=== PATIENT | male | born 1940 | race Caucasian/White ===

== ENCOUNTER → 2017-05-27 11:50 | Outpatient (CLI) | payer MEDICARE, SELFPAY ==
[2017-05-27 12:04] LABS: Hematocrit 36.2 % (40-54); Hemoglobin 11.4 g/dl (13.0-16.5); Mean Corp Hgb Conc 31.5 g/gl (32-36); Mean Corpuscular Hgb 30.9 pg (27.0-32.0); Mean Corpuscular Volume 98.1 fL (80-94); Mean Platelet Vol. 11.1 fl (6.2-12.0); Platelet Count 183 K/mm3 (150-450); RBC Distribution Width CV 12.8 % (11.6-14.6); RBC Distribution Width SD 44.2 fl (35.1-43.9); Red Blood Count 3.69 M/mm3 (4.6-6.2); White Blood Count 6.9 K/mm3 (4.4-11.0)
[2017-05-27 12:09] LABS: Scan Indicated on CBC? Y/N NO
[2017-05-27 12:30] LABS: ALB/GLOB Ratio 1.2 RATIO (0.9-2.4); AST(SGOT) 17 U/L (15-37); Alanine Aminotransfer ALT/SGPT 16 U/L (16-61); Albumin, Serum 3.7 g/dL (3.2-5.0); Alkaline Phosphatase 83 U/L (45-117); Anion Gap 5 (5-15); BUN 25 mg/dL (7-18); BUN/Creat Ratio 20.2 RATIO (10-20); Calcium,Total 8.8 mg/dL (8.5-10.1); Chloride 104 mmol/L (98-107); Cholesterol 105 mg/dL (200); Creatinine, Serum 1.24 mg/dL (0.70-1.30); EST Glomerular Filtration Rate 60 mL/min (>60); Est Glom Filt Rate - Afr Amer 73 mL/min (>60); Globulin 3.1 g/dL (2.2-4.2); Glucose 95 mg/dL (74-106); High Density Lipoprotein 43 mg/dL; Potassium 4.9 mmol/L (3.5-5.1); Protein, Total 6.8 g/dL (6.4-8.2); Sodium Level 138 mmol/L (136-145); Triglycerides 68 mg/dL; Very Low Density Lipoprotein 14 mg/dL (5-40)
== END ==
PROVIDERS: Family Provider Internal Medicine; PCP Internal Medicine; Visit Provider Internal Medicine
DX: E78.5 Hyperlipidemia, unspecified (principal); Z79.899 Other long term (current) drug therapy
CPT/HCPCS: 80053; 80061; 85027

== ENCOUNTER → 2018-05-28 06:18 | Outpatient (CLI) | payer MEDICARE, SELFPAY ==
[2018-05-26 08:37] VITALS: BMI 23.4
[2018-05-28 07:36] LABS: AST(SGOT) 16 U/L (15-37); Alanine Aminotransfer ALT/SGPT 13 U/L (16-61); Albumin, Serum 3.7 g/dL (3.2-5.0); Alkaline Phosphatase 85 U/L (45-117); Bilirubin, Direct 0.11 mg/dL (0.00-0.30); Cholesterol 111 mg/dL (200); Globulin 3.1 g/dL (2.2-4.2); High Density Lipoprotein 38 mg/dL; Protein, Total 6.8 g/dL (6.4-8.2); Triglycerides 59 mg/dL; Very Low Density Lipoprotein 12 mg/dL (5-40)
== END ==
PROVIDERS: Family Provider Internal Medicine; PCP Internal Medicine; Referring Provider Internal Medicine Cardiovascular Disease; Visit Provider Internal Medicine Cardiovascular Disease
DX: E78.00 Pure hypercholesterolemia, unspecified (principal)
CPT/HCPCS: 36415; 80061; 80076

== ENCOUNTER → 2018-06-24 06:41 | Outpatient (CLI) | payer MEDICARE, SELFPAY ==
[2018-05-26 08:37] VITALS: BMI 23.4
--- NOTE | 2018-06-24 06:47 | ECHOD_ITS ---
Reason For Study: CAD/ASHD Procedure This was a 2D Doppler, Color Flow transthoracic echocardiogram. Exam performed in department. Left Ventricle Normal LV size. Left ventricular systolic function is normal. The estimated ejection fraction is 60 %. Stage 3 diastolic dysfunction. No regional wall motion abnormalities noted. Right Ventricle Normal RV size. Normal systolic function. Atria Normal left atrium. Normal right atrium. Mitral Valve Normal mitral valve. Mild (1+) eccentric mitral valve insufficiency. Tricuspid Valve Normal tricuspid valve. Mild tricuspid valve insufficiency. Pulmonary artery systolic pressure is 34 mmHg. Aortic Valve Trisinus/trileaflet aortic valve. Mild (1+) eccentric aortic valve insufficiency. Pulmonic Valve Normal pulmonic valve. Great Vessels Normal aortic root. The pulmonary artery is normal size. Normal inferior vena cava. Pericardium/Pleural No pericardial effusion. MMode/2D Measurements & Calculations LVIDd: 4.3 cm IVSd: 1.2 cm Ao root diam: 4.0 cm LVIDs: 2.8 cm LVPWd: 0.89 cm LA dimension: 3.5 cm RVDd: 3.5 cm FS: 35.5 % LAV(MOD-bp): 38.1 ml LA A4 area: 12.4 cm2 RA A4 area: 13.5 cm2 LAV(MOD-bp) Indexed: 20.3 ml/m2 LAV(MOD-sp2): 46.7 ml LAV(MOD-sp4): 29.7 ml Time Measurements MV dec time: 0.22 sec Doppler Measurements & Calculations MV E max chong: 100.4 cm/sec Lat Peak E' Chong: 9.6 cm/sec Med Peak E' Chong: 10.3 cm/sec MV A max chong: 40.4 cm/sec E/E' lat: 10.4 E/E' med: 9.7 MV E/A: 2.5 MV V2 max: 126.8 cm/sec MV P1/2t max chong: 127.7 cm/sec Ao V2 max: 97.7 cm/sec MV max P.4 mmHg MV P1/2t: 60.5 msec Ao max P.8 mmHg MV V2 mean: 56.6 cm/sec MV dec slope: 618.4 cm/sec2 MV mean P.6 mmHg MVA(P1/2t): 3.6 cm2 MV V2 VTI: 35.4 cm AI max chong: 276.1 cm/sec LV V1 max: 82.3 cm/sec PA V2 max: 111.3 cm/sec AI max P.5 mmHg LV V1 max P.7 mmHg AI dec slope: 134.4 cm/sec2 AI P1/2t: 601.6 msec PI dec slope: 252.0 cm/sec2 TR max chong: 277.6 cm/sec TR max P.8 mmHg Interpretation Summary Normal LV size. Left ventricular systolic function is normal. The estimated ejection fraction is 60 %. Stage 3 diastolic dysfunction. Pulmonary artery systolic pressure is 34 mmHg. Ordering Physician: Tod Foss Referring Physician: Tod Foss Performed By: Olvin Pugh RCS
--- NOTE | 2018-06-24 13:19 | STRESSREP ---
Stress Test Report Exercise myocardial perfusion stress test. 78-year-old man with a history of chest pain. Stress protocol: Resting EKG demonstrates sinus bradycardia with a rate of 55 bpm resting blood pressure 120/74 mmHg. The patient exercised according to the regular Johan protocol for total duration of 12 minutes the maximum heart rate attained was 130 bpm is 90% maximum predicted heart rate the maximum workload was 13.4 metabolic equivalents. At rest there were no ST or T wave changes noted suggest ischemia peak exercise upsloping ST changes only were noted with normally the criteria for ischemia. The resting blood pressure 128/74 with a peak blood pressure 160/70 mmHg. No clinical angina was noted the test was terminated due to leg fatigue. Myocardial perfusion protocol. 11.5 mCi of technetium 99m sestamibi was injected at rest. Patient exercised according to regular Johan protocol for total duration of 12 minutes. At peak exercise 36.0 mCi of technetium 99m sestamibi was injected stress images were obtained stress and rest images were reconstructed and compared in the short axis vertical long horizontal long axis. Gated images were also obtained per Perfusion SPECT analysis: Review of the stress images demonstrate normal uptake of tracer noted in all areas of the myocardium. There is resting images similarly demonstrate normal uptake of tracer noted in all the rest of the myocardium. No areas of reversibility are noted suggest ischemia no previous infarct is noted. Gated SPECT analysis: The gated ejection fraction is noted to be 74%. Conclusion: Normal exercise myocardial perfusion stress test at a high workload. No ischemia noted. Preserved ejection fraction.
== END ==
PROVIDERS: Family Provider Internal Medicine; PCP Internal Medicine; Referring Provider Internal Medicine Cardiovascular Disease; Visit Provider Internal Medicine Cardiovascular Disease
DX: I25.10 Atherosclerotic heart disease of native coronary artery without angina pectoris (principal); Z95.1 Presence of aortocoronary bypass graft
CPT/HCPCS: 78452; 93017; 93306; A9500; A4216

== ENCOUNTER → 2020-01-13 15:50 | Outpatient (CLI) | payer MEDICARE, SELFPAY ==
[2020-01-13 15:30] VITALS: BMI 23.4
[2020-01-13 17:52] LABS: AST(SGOT) 18 U/L (15-37); Alanine Aminotransfer ALT/SGPT 14 U/L (16-61); Albumin, Serum 3.8 g/dL (3.2-5.0); Alkaline Phosphatase 85 U/L (45-117); Bilirubin, Direct 0.08 mg/dL (0.00-0.30); Cholesterol 119 mg/dL (200); Globulin 3.2 g/dL (2.2-4.2); High Density Lipoprotein 42 mg/dL; Triglycerides 100 mg/dL; Very Low Density Lipoprotein 20 mg/dL (5-40)
== END ==
PROVIDERS: PCP Internal Medicine; Referring Provider Internal Medicine Cardiovascular Disease; Visit Provider Internal Medicine Cardiovascular Disease
DX: E78.5 Hyperlipidemia, unspecified (principal); I25.709 Atherosclerosis of coronary artery bypass graft(s), unspecified, with unspecified angina pectoris
CPT/HCPCS: 36415; 80061; 80076

== ENCOUNTER 2020-03-03 11:28 | Observation (INO) | payer MEDICARE, SELFPAY ==
[2020-01-13 15:30] VITALS: BMI 23.4
[2020-03-03] VITALS (7 sets, daily range): BP systolic 122–144; BP diastolic 55–77; PULSE 54–57; RESP 14–18; TEMP 36.4–37.1; O2SAT 98–100; BMI 23.1
--- NOTE | 2020-03-03 11:59 | EKG12_ITS ---
Test Reason : Blood Pressure : / mmHG Vent. Rate : 054 BPM Atrial Rate : 054 BPM P-R Int : 196 ms QRS Dur : 080 ms QT Int : 422 ms P-R-T Axes : 000 033 046 degrees QTc Int : 400 ms Sinus bradycardia Otherwise normal ECG Confirmed by KAYKAY BENITEZ, [facility] ([id number]), editor farm journal WOLFGANG VERNON ([id number]) on 03/07/2020 8:36:53 AM Referred By: MARGAUX Confirmed By:[facility]I MCCRACKEN MD
--- NOTE | 2020-03-03 12:12 | ED.VIS.GEN ---
History of Present Illness Chief Complaint: Abn Labs Informant: Patient Narrative: Patient states that he received a phone call today that his potassium was elevated. Initially he was told to drink more fluids and stop his lisinopril and have it rechecked. Later he was advised to come to the emergency room. He does not know what level his potassium was at. He does not know what his creatinine status is. He denies any palpitations. He states he played pickle ball this morning but stated that his upper back muscles did not seem as strong as they have been. No muscle spasms. He states he has been urinating normally. He denies taking any potassium supplementation. No vomiting or diarrhea. Blood work drawn on March 02 was faxed to me appears to have a creatinine of 1.49 and a potassium of 6.5. Past Medical History - Allergies and Home Meds Allergies/Adverse Reactions: Allergies niacin [From Niaspan Extended-Release] Adverse Reaction (Verified 03/03/20 12:11) Other Primary Care Physician: Lyubov Diaz MD [Primary Care Provider] - Surgical History: coronary bypass surgery Smoking Status: Never smoker - Family History Paternal Family History: Family History (Last Reviewed 01/13/20 @ 15:[address] Tod Foss MD) Father CAD (coronary artery disease) Diabetes Hypertension Myocardial infarction Mother Colon cancer Brother CAD (coronary artery disease) Diabetes CABG a 58 CABG age 58 Family History: Reports: Heart Disease Sibling Family History: Family History (Last Reviewed 01/13/20 @ 15:[address] Tod Foss MD) Father CAD (coronary artery disease) Diabetes Hypertension Myocardial infarction Mother Colon cancer Brother CAD (coronary artery disease) Diabetes CABG a 58 CABG age 58 Family History: Reports: Heart Disease Review of Systems General: Denies: Chills, Fever, Sweats Eyes: Denies: Visual changes - bilaterally, Diplopia ENT: Denies: Rhinorrhea, Sore throat Cardiovascular: Denies: Chest pain, Palpitations Respiratory: Denies: Dyspnea, Cough, Dyspnea on exertion Gastrointestinal: Denies: Abdominal pain, Nausea, Vomiting, Diarrhea, Melena, Hematochezia Genitourinary: Denies: Dysuria, Hematuria, Frequency Musculoskeletal: Denies: Back pain, Extremity Pain Skin: Denies: Rash, Wounds Neurological: Denies: Headache, Weakness, Numbness Physical Exam Vital Signs/Narrative: Vital Signs Temp Pulse Resp BP Pulse Ox 03/03/20 11:29 97.9 F 54 L 18 132/73 H 99 Inital Vital Signs reviewed: Yes General: Well nourished, Well developed, No Acute Distress Head: Normocephalic, Atraumatic Eyes: Perrl, EOMI ENT: Moist mucous membranes, No rhinorrhea Neck: Supple, Nontender Cardiovascular: Regular rate, Regular rhythm, No murmurs Respiratory: No distress, CTA bilaterally, Chest nontender Abdomen: Soft, Nontender, Nondistended, Normal bowel sounds Back: Nontender, Normal Inspection Extremities: Nontender, No edema Skin: Normal color, No rash Neurological: Alert, Oriented x3, Cranial nerves II-XII grossly intact, Normal Strength, Normal Sensation Psychological: Normal affect, Normal Mood Diagnostic/Tx/Re-eval Laboratory Last Values WBC 6.6 K/mm3 (4.4-11.0) 03/03/20 12:10 RBC 3.37 M/mm3 (4.6-6.2) L 03/03/20 12:10 Hgb 10.5 g/dL (13.0-16.5) L 03/03/20 12:10 Hct 33.6 % (40-54) L 03/03/20 12:10 MCV 99.7 fL (80-94) H 03/03/20 12:10 MCH 31.2 pg (27.0-32.0) 03/03/20 12:10 MCHC 31.3 g/dL (32-36) L 03/03/20 12:10 RDW Std Deviation 47.6 fl (35.1-43.9) H 03/03/20 12:10 RDW Coeff of [place] 12.9 % (11.6-14.6) 03/03/20 12:10 Plt Count 177 K/mm3 (150-450) 03/03/20 12:10 MPV 10.6 fl (6.2-12.0) 03/03/20 12:10 Immature Gran % (Auto) 0.300 % (0.0-0.9) 03/03/20 12:10 Neut % (Auto) 70.6 % (47-70) H 03/03/20 12:10 Lymph % (Auto) 14.3 % (19-41) L 03/03/20 12:10 [place] % (Auto) 9.6 % (0-10) 03/03/20 12:10 Eos % (Auto) 4.7 % (0-5) 03/03/20 12:10 Baso % (Auto) 0.5 % (0-1) 03/03/20 12:10 Absolute Neuts (auto) 4.6 X10^3/uL (2.0-7.7) 03/03/20 12:10 Absolute Lymphs (auto) 0.94 X10^3/uL (0.83-4.51) 03/03/20 12:10 Nucleated RBC % 0 % (0-5) 03/03/20 12:10 Sodium 135 mmol/L (136-145) L 03/03/20 12:10 Potassium 6.6 mmol/L (3.5-5.1) H* 03/03/20 12:10 Chloride 106 mmol/L (98-107) 03/03/20 12:10 Carbon Dioxide 28.0 mmol/L (21.0-32.0) 03/03/20 12:10 Anion Gap 1 (5-15) L 03/03/20 12:10 BUN 39 mg/dL (7-18) H 03/03/20 12:10 Creatinine 1.79 mg/dL (0.70-1.30) H 03/03/20 12:10 Estim Creat Clear Calc 32.37 ml/min 03/03/20 12:10 Est GFR (MDRD) Af Amer 47 mL/min (>60) L 03/03/20 12:10 Est GFR (MDRD) Non-Af 39 mL/min (>60) L 03/03/20 12:10 BUN/Creatinine Ratio 21.8 RATIO (10-20) H 03/03/20 12:10 Glucose 95 mg/dL (74-106) 03/03/20 12:10 Calcium 8.8 mg/dL (8.5-10.1) 03/03/20 12:10 Magnesium 2.7 mg/dL (1.6-2.6) H 03/03/20 12:10 - EKG Initial EKG Interpretation: Sinus Rhythm - EKG demonstrates a sinus bradycardia at a rate of 54. There is no change in T waves or QT intervals compared to EKG dated May 2018. - Medical Decision Making The patient was placed on the monitor. Patient received a liter of IV fluids and 30 mg of Kayexalate. Plan will be admission into the hospital. ED Disposition - Plan for ED Patient: Disposition: [facility] Diagnosis: Hyperkalemia, Acute renal insufficiency Referrals: Lyubov Diaz MD [Primary Care Provider] -
[2020-03-03 12:25] LABS: Absolute Lymphocyte Count 0.94 X10^3/uL (0.83-4.51); Absolute Neutrophil Count 4.6 X10^3/uL (2.0-7.7); Basophil# 0.03 X10^3/uL; Basophil% 0.5 % (0-1); Eosinophil# 0.31 X10^3/uL; Eosinophils% 4.7 % (0-5); Hematocrit 33.6 % (40-54); Hemoglobin 10.5 g/dL (13.0-16.5); Lymphocyte # 0.94 X10^3/ul (4.0); Lymphocyte % 14.3 % (19-41); Mean Corp Hgb Conc 31.3 g/dL (32-36); Mean Corpuscular Hgb 31.2 pg (27.0-32.0); Mean Corpuscular Volume 99.7 fL (80-94); Mean Platelet Vol. 10.6 fl (6.2-12.0); Monocyte# 0.63 X10^3/uL; Monocyte% 9.6 % (0-10); NRBC Flagged by Analyzer 0 % (0-5); Neutrophil # 4.63 X10^3/uL (2.7-7.7); Neutrophil % 70.6 % (47-70); Platelet Count 177 K/mm3 (150-450); RBC Distribution Width CV 12.9 % (11.6-14.6); RBC Distribution Width SD 47.6 fl (35.1-43.9); Red Blood Count 3.37 M/mm3 (4.6-6.2); White Blood Count 6.6 K/mm3 (4.4-11.0)
[2020-03-03 12:34] LABS: Anion Gap 1 (5-15); BUN 39 mg/dL (7-18); BUN/Creat Ratio 21.8 RATIO (10-20); Calcium,Total 8.8 mg/dL (8.5-10.1); Chloride 106 mmol/L (98-107); Creatinine, Serum 1.79 mg/dL (0.70-1.30); EST Glomerular Filtration Rate 39 mL/min (>60); Est Glom Filt Rate - Afr Amer 47 mL/min (>60); Estimated Creatinine Clearance 32.37 ml/min; Glucose 95 mg/dL (74-106); Potassium 6.6 mmol/L (3.5-5.1); Sodium Level 135 mmol/L (136-145)
[2020-03-03 13:09] LABS: Magnesium 2.7 mg/dL (1.6-2.6)
[2020-03-03] MEDS: 0.9% Normal Saline 1,000 ML 999 ML IV (13:23)
[2020-03-03] MEDS: Sodium Polystyrene Sulfonate 15 GM/60 ML UDC 30 GM PO (13:24)
--- NOTE | 2020-03-03 13:28 | HP.PCM_ITS ---
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 (4) Atherosclerosis of coronary artery of [place] heart without angina pectoris Status: Chronic (5) History of coronary artery stent placement Status: Resolved Comment: [id number] Main w/ 4.5 x 16 mm Liberte Stent 05/26/2007 (6) H/O coronary artery bypass surgery Status: Resolved Comment: CABG x 3 ANGEL-LAD, SVG-OM1 and SVG-RCA w/ Maze procedure 12/02/2002 (7) Premature ventricular contractions Status: Chronic (8) Paroxysmal atrial fibrillation Status: Chronic (9) Hyperlipidemia Status: Chronic Qualifiers: Hyperlipidemia type: pure hypercholesterolemia Qualified Code(s): E78.00 - Pure hypercholesterolemia, unspecified; E78.00 - Pure hypercholesterolemia, unspecified; E78.00 - Pure hypercholesterolemia, unspecified; E78.0 - Pure hypercholesterolemia (10) Left ventricular diastolic dysfunction Status: Chronic History of Present Illness Date of Admission: 03/03/20 Chief Complaint: abnormal labs. The patient is a 80 year old M who has been feeling well other than today noted some weakness in the shoulders. A week ago, patient had a routine blood work that showed a potassium that was elevated. It was rechecked again today and was elevated. Directed to the emergency room. Patient was advised to stop his lisinopril today by his primary care provider. In the emergency room, patient's potassium was 6.6. EKG was normal. Patient was ordered Kayexalate and the hospital service was contacted for admission. Patient denies any history of any electrolyte abnormality that he is aware of. [] Past Medical History Past Medical History (Chronic Problems): Chronic Problems (Last Reviewed 03/03/20 @ 13:[address] Darío Kamara DO) Atherosclerosis of coronary artery bypass graft of [place] heart with angina pectoris (Chronic) Atherosclerosis of coronary artery of [place] heart without angina pectoris (Chronic) Premature ventricular contractions (Chronic) Paroxysmal atrial fibrillation (Chronic) Hyperlipidemia (Chronic) Left ventricular diastolic dysfunction (Chronic) Medical History: Medical History (Last Reviewed 03/03/20 @ 13:[address] Darío Kamara DO) Atherosclerosis of coronary artery bypass graft of [place] heart with angina pectoris (Chronic) I25.709 Atherosclerosis of coronary artery of [place] heart without angina pectoris (Chronic) I25.10 Premature ventricular contractions (Chronic) I49.3 Paroxysmal atrial fibrillation (Chronic) I48.0 Hyperlipidemia (Chronic) E78.5 Left ventricular diastolic dysfunction (Chronic) I51.9 Dizziness (Inactive) R42 Allergies lisinopril Adverse Reaction (Verified 03/03/20 13:26) NEEDS FOLLOW-UP suspected cause of hyperkalemia niacin [From Niaspan Extended-Release] Adverse Reaction (Verified 03/03/20 12:11) Other Home Medications: Ambulatory Orders Medication Instructions Recorded simvastatin 80 mg tablet 80 mg PO QDAY #90 tab 04/02/19 metoprolol tartrate 100 mg tablet 100 mg PO BID #180 tab 04/06/19 aspirin 81 mg tablet,delayed 81 mg PO DAILY #90 tab 04/15/19 release clopidogrel 75 mg tablet 75 mg PO QDAY #90 tab 07/20/19 lisinopril 5 mg tablet 5 mg PO DAILY #90 tab 07/20/19 amlodipine 5 mg tablet 5 mg PO DAILY #90 tab 09/22/19 Surgical History: Surgical History (Last Reviewed 03/03/20 @ 13:[address] Darío Kamara DO) History of coronary artery stent placement (Resolved) Onset Date: 05/26/07 Z95.5 [id number] Main w/ 4.5 x 16 mm Liberte Stent 05/26/2007 H/O coronary artery bypass surgery (Resolved) Onset Date: 12/02/02 Z95.1 CABG x 3 ANGEL-LAD, SVG-OM1 and SVG-RCA w/ Maze procedure 12/02/2002 History of maze procedure Z98.890 S/P CABG x 3 Z95.1 Surgical History: coronary bypass surgery Smoking Status: Never smoker - *Family History Paternal Family History: Family History (Last Reviewed 03/03/20 @ 13:[address] Darío Kamara DO) Father CAD (coronary artery disease) Diabetes Hypertension Myocardial infarction Mother Colon cancer Brother CAD (coronary artery disease) Diabetes CABG a 58 CABG age 58 History Items: Heart Disease Sibling Family History: Family History (Last Reviewed 03/03/20 @ 13:[address] Darío Kamara DO) Father CAD (coronary artery disease) Diabetes Hypertension Myocardial infarction Mother Colon cancer Brother CAD (coronary artery disease) Diabetes CABG a 58 CABG age 58 History Items: Heart Disease Review of Systems Constitutional: Denies: Anorexia, Chills, Fever, Night Sweats Eyes: Denies: Blurred vision, Double vision HEENT: Denies: Head Aches, Sinus Congestion, Sinus Drainage Cardiovascular: Denies: Chest Pain, Palpitations Respiratory: Denies: Cough, Shortness of breath at rest, Sputum production Gastrointestinal: Denies: Abdominal Pain, Nausea, Vomiting Genitourinary: Denies: Dysuria Hematologic/ Lymphatic: Denies: Easy Bruising, Easy Bleeding Comment: All review of systems were negative except as mentioned above in the history of present illness and the other review of systems. VTE Information - Inpt Only VTE Present on Admission: No VTE Mechan Device Prophylaxis: None VTE Pharm Prophylaxis ordered?: No Reason prophylaxis not ordered:: Treatment Not Indicated Patient Problems: Active and Suspected Problems (Last Reviewed 03/03/20 @ 13:[address] Darío Kamara, DO) Hyperkalemia (Acute) Acute renal insufficiency (Acute) - Physical Exam Vitals/I&O's: Vital Signs Temp Pulse Resp BP Pulse Ox 36.4 C L 57 L 16 122/62 H 100 03/03/20 13:25 03/03/20 13:25 03/03/20 13:25 03/03/20 13:25 03/03/20 13:25 Oxygen Delivery Method Room Air Weight: 68.946 kg Body Mass Index (BMI) 23.1 General: Alert, Cooperative, No apparent distress HEENT: Atraumatic, Normocephalic Oral: Moist Mucosa, No Gingival or Mucosal Lesions/ Ulcerations Neck: No Nodes, Thyroid Normal Size and Texture Lungs: Clear to auscultation, Normal air movement, No rhonchi, No wheeze Cardiovascular: Regular rate, Regular Rhythm, Normal S1, Normal S2, No murmurs Abdomen: Bowel Sounds Present, Soft, Non Tender, Non-Distended, No Hepato- splenomegaly Extremities: No edema, No Calf Tenderness Psych/Mental Status: Normal Affect, Appropriate Laboratory Results 03/03/20 12:10: WBC 6.6, RBC 3.37 L, Hgb 10.5 L, Hct 33.6 L, MCV 99.7 H, MCH 31.2, MCHC 31.3 L, RDW Std Deviation 47.6 H, RDW Coeff of [place] 12.9, Plt Count 1 77, MPV 10.6, Immature Gran % (Auto) 0.300, Neut % (Auto) 70.6 H, Lymph % (Auto) 14.3 L, [place] % (Auto) 9.6, Eos % (Auto) 4.7, Baso % (Auto) 0.5, Absolute Neuts (auto) 4.6, Absolute Lymphs (auto) 0.94, Nucleated RBC % 0 03/03/20 12:10: Sodium 135 L, Potassium 6.6 H*, Chloride 106, Carbon Dioxide 28.0, Anion Gap 1 L, BUN 39 H, Creatinine 1.79 H, Estim Creat Clear Calc 32.37, Est GFR (MDRD) Af Amer 47 L, Est GFR (MDRD) Non-Af 39 L, BUN/Creatinine Ratio 21.8 H, Glucose 95, Calcium 8.8 03/03/20 12:10: Magnesium 2.7 H Current Medications Sodium Chloride () 1,000 mls @ 999 mls/hr IV .Q1H1M ONE Stop: 03/03/20 13:38 Last Admin: 03/03/20 13:23 Dose: 999 mls/hr Documented by: Assessment/Plan All Active Problems (Last Reviewed 03/03/20 @ 13:[address] Darío Kamara, DO) Hyperkalemia (Acute) Acute renal insufficiency (Acute) History of coronary artery stent placement (Resolved 05/26/07) H/O coronary artery bypass surgery (Resolved 12/02/02) 1. Hyperkalemia: Asymptomatic other than just some subjective weakness. Unclear about this at all related with hyperkalemia. Likely related with lisinopril which will be held and added to the allergy list here. Not a true allergy but adverse reaction. Patient receiving Kayexalate in the emergency [facility] m. We will recheck his potassium this afternoon and also give him some fluids. If it is improved possibly patient could go home today or tomorrow. 2. Hypertension: Continue with amlodipine, hold lisinopril as mentioned above. 3. Coronary artery disease: Stable 4. VTE prophylaxis low risk as he is observation status. OBSV E&M: [id number] Initial observation care L2
[2020-03-03] MEDS: 0.9% Normal Saline 1,000 ML 250 ML IV (15:55)
[2020-03-03 17:57] LABS: Anion Gap 3 (5-15); BUN 35 mg/dL (7-18); BUN/Creat Ratio 22.6 RATIO (10-20); Calcium,Total 8.2 mg/dL (8.5-10.1); Chloride 107 mmol/L (98-107); Creatinine, Serum 1.55 mg/dL (0.70-1.30); EST Glomerular Filtration Rate 46 mL/min (>60); Est Glom Filt Rate - Afr Amer 56 mL/min (>60); Estimated Creatinine Clearance 37.39 ml/min; Glucose 92 mg/dL (74-106); Potassium 5.1 mmol/L (3.5-5.1); Sodium Level 137 mmol/L (136-145)
--- NOTE | 2020-03-03 18:09 | DCINST_ITS ---
- Discharge Diagnoses Current Active Problems: Current Active and Chronic Problems (Last Reviewed 03/03/20 @ 13:[address] Darío Kamara, DO) Hyperkalemia (Acute) Acute renal insufficiency (Acute) Atherosclerosis of coronary artery bypass graft of [place] heart with angina pectoris (Chronic) Atherosclerosis of coronary artery of [place] heart without angina pectoris (Chronic) Premature ventricular contractions (Chronic) Paroxysmal atrial fibrillation (Chronic) Hyperlipidemia (Chronic) Left ventricular diastolic dysfunction (Chronic) You will use the following diet at home:: No restrictions Your food should be the consistency of: Regular Your liquids should be the consistency of: Regular/Thin Discharge Activity: Return to Normal Activity Call your doctor if you observe: - - increased weakness Allergies/Adverse Reactions: Allergies lisinopril Adverse Reaction (Verified 03/03/20 13:26) NEEDS FOLLOW-UP suspected cause of hyperkalemia niacin [From Niaspan Extended-Release] Adverse Reaction (Verified 03/03/20 12:11) Other Medications to take at Discharge metoprolol tartrate 100 mg tablet 100 mg PO BID #180 tab 04/06/19 aspirin 81 mg tablet,delayed release 81 mg PO DAILY #90 tab 04/15/19 amlodipine 5 mg tablet 5 mg PO DAILY #90 tab 09/22/19 Clopidogrel Bisulfate [Clopidogrel] 75 mg PO DAILY 03/03/20 Simvastatin 80 mg PO QHS 03/03/20 Primary Care Physician: Lyubov Diaz MD [Primary Care Provider] - Within 1 Week Please follow up with your Primary Care Physician in: you will need lab work next week. Test Results: Test results from this visit will be discussed in further detail at your follow- up appointment, if applicable. Proposed Discharge Date: 03/03/20
--- NOTE | 2020-03-03 18:11 | DS.PCM_ITS ---
Discharge Date and Diagnosis - Problem List Patient Problems: Active and Suspected Problems (Last Reviewed 03/03/20 @ 13:[address] Darío Kamara DO) Hyperkalemia (Acute) Acute renal insufficiency (Acute) Date of Admission: 03/03/20 Date of Discharge: 03/03/20 - Primary Discharge Diagnosis Acute Problems: Active Problems (Last Reviewed 03/03/20 @ 13:[address] Darío Kamara DO) Hyperkalemia (Acute) Acute renal insufficiency (Acute) - Secondary Discharge Diagnosis Chronic Problems: Chronic Problems (Last Reviewed 03/03/20 @ 13:[address] 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 Please see the admission for further details but patient states that he had an abnormal test about a week ago had follow-up test today that was still elevated and directed to the emergency room. Patient did receive Kayexalate as well as IV fluids and his potassium went from 6.6-5.1. Patient really only complaints is that his back felt weak when he is playing pickle ball today but otherwise felt fine. Patient's creatinine was up a little bit as well and that has trended down from 1.7-1.5. Patient to continue to hold off on lisinopril as it is likely cause of his hyperkalemia. Follow-up with primary care doctor for additional blood work to make sure that the potassium is staying down patient is still having issues with his potassium may need referral to a franchise manager. [] Patient Problems: Active and Suspected Problems (Last Reviewed 03/03/20 @ 13:[address] Darío Kamara DO) Hyperkalemia (Acute) Acute renal insufficiency (Acute) - Physical Exam Vitals/I&O's: Vital Signs Temp Pulse Resp BP Pulse Ox 37.1 C 54 L 18 144/55 H 98 03/03/20 15:34 03/03/20 16:15 03/03/20 15:34 03/03/20 15:34 03/03/20 15:34 Oxygen Delivery Method Room Air Weight: 68.946 kg Body Mass Index (BMI) 23.1 Intake and Output for Last 24 Hours 03/01/20 03/02/20 03/03/20 23:59 23:59 23:59 Intake Total 1000 / 1000 Balance 1000 / 1000 Laboratory Results 03/03/20 12:10: WBC 6.6, RBC 3.37 L, Hgb 10.5 L, Hct 33.6 L, MCV 99.7 H, MCH 31.2, MCHC 31.3 L, RDW Std Deviation 47.6 H, RDW Coeff of [place] 12.9, Plt Count 177, MPV 10.6, Immature Gran % (Auto) 0.300, Neut % (Auto) 70.6 H, Lymph % (Auto) 14.3 L, [place] % (Auto) 9.6, Eos % (Auto) 4.7, Baso % (Auto) 0.5, Absolute Neuts (auto) 4.6, Absolute Lymphs (auto) 0.94, Nucleated RBC % 0 03/03/20 12:10: Sodium 135 L, Potassium 6.6 H*, Chloride 106, Carbon Dioxide 28.0, Anion Gap 1 L, BUN 39 H, Creatinine 1.79 H, Estim Creat Clear Calc 32.37, Est GFR (MDRD) Af Amer 47 L, Est GFR (MDRD) Non-Af 39 L, BUN/Creatinine Ratio 21.8 H, Glucose 95, Calcium 8.8 03/03/20 12:10: Magnesium 2.7 H 03/03/20 16:50: Sodium 137, Potassium 5.1, Chloride 107, Carbon Dioxide 27.0, Anion Gap 3 L, BUN 35 H, Creatinine 1.55 H, Estim Creat Clear Calc 37.39, Est GFR (MDRD) Af Amer 56 L, Est GFR (MDRD) Non-Af 46 L, BUN/Creatinine Ratio 22.6 H , Glucose 92, Calcium 8.2 L Current Medications Acetaminophen (Acetaminophen 325 Mg Tablet) 650 mg PO Q6H PRN PRN PRN Reason: Pain Score 1-10/Temp > 100.7 F Amlodipine Besylate (Amlodipine 5 Mg Tablet) 5 mg PO DAILY [facility] Aspirin (Aspirin E.C. 81 Mg Tablet) 81 mg [facility] Atorvastatin Calcium (Atorvastatin Calcium 40 Mg Tablet) 40 mg PO QHS [facility] Clopidogrel Bisulfate (Clopidogrel Bisulfate 75 Mg Tablet) 75 mg PO DAILY [facility] Sodium Chloride () 1,000 mls @ 250 mls/hr IV .Q4H [facility] Stop: 03/03/20 19:22 Last Admin: 03/03/20 15:55 Dose: 250 mls/hr Documented by: Metoprolol Tartrate (Metoprolol Tartrate 100 Mg Tablet) 100 mg PO BID [facility] Sodium Chloride (0.9% Saline Lock 10 Ml Syringe) 10 - 40 ml IV UD PRN PRN Reason: SALINE FLUSH Discharge Diet: No Restrictions Discharge Activity: Return to Normal Activity Call your doctor if you observe: - - increased weakness Home Medications: Medications to take at Discharge metoprolol tartrate 100 mg tablet 100 mg PO BID #180 tab 04/06/19 aspirin 81 mg tablet,delayed release 81 mg PO DAILY #90 tab 04/15/19 amlodipine 5 mg tablet 5 mg PO DAILY #90 tab 09/22/19 Clopidogrel Bisulfate [Clopidogrel] 75 mg PO DAILY 03/03/20 Simvastatin 80 mg PO QHS 03/03/20 Primary Care Physician: Lyubov Diaz MD [Primary Care Provider] - Within 1 Week Please follow up with your Primary Care Physician in: you will need lab work next week. Disposition: Home Minutes spent on discharge:: 32 Patient Condition:: Good Medical Necessity - Tobacco Use Smoking Status: Never smoker Tobacco Use: Non-smoker Meaningful Use Info Meaningful Use Diagnoses (Choose all that apply): None applicable OBSV E&M: 26447 Observ/hosp same date L2 - disregard Admission billing as patient being discharge same day.
== END 2020-03-03 18:30 | disposition home or self-care (01) ==
LOC: ED 13:51 → MS3 13:57
PROVIDERS: Emergency Provider Emergency Medicine; PCP Internal Medicine
DX: E87.5 Hyperkalemia (principal); N28.9 Disorder of kidney and ureter, unspecified; I25.10 Atherosclerotic heart disease of native coronary artery without angina pectoris; I48.0 Paroxysmal atrial fibrillation; E78.5 Hyperlipidemia, unspecified; I49.3 Ventricular premature depolarization; Z95.1 Presence of aortocoronary bypass graft; Z79.899 Other long term (current) drug therapy; Z79.02 Long term (current) use of antithrombotics/antiplatelets; Z79.82 Long term (current) use of aspirin; I10 Essential (primary) hypertension
CPT/HCPCS: 80048; 83735; 85025; 93005; 96360; 96361; 97802; 99218; 99284; J7030; A4216; G0378

== ENCOUNTER 2020-08-27 13:19 | Emergency (ER) | payer MEDICARE, SELFPAY ==
[2020-03-03 14:36] VITALS: BMI 23.1
[2020-08-27 13:20] VITALS: BP 157/80; PULSE 55; RESP 16; TEMP 36.4; O2SAT 99; BMI 24.0
--- NOTE | 2020-08-27 13:44 | RAD_ITS ---
STUDY: X-RAY - LEFT FOOT CLINICAL: Male, 80 years old. pain, poss injury TECHNIQUE: 3 view(s) of the foot. COMPARISON: None. FINDINGS: Normal talus, calcaneus, and tarsal bones. Normal visualized subtalar, talonavicular, calcaneocuboid, tarsal and tarsometatarsal articulations. Normal metatarsi. Normal metatarsophalangeal joint of the great toe. Normal tibial and fibular sesamoid bones. Normal interphalangeal joint of the great toe. Normal phalanges of the great toe. Normal second through fifth metatarsophalangeal joints. Normal interphalangeal joints and phalanges of the lesser toes. The soft tissue structures are unremarkable. RAD/Foot min 3 Views IMPRESSION: Normal x-ray examination of the foot. Electronically Signed: Ronen Khanna MD at 14:49 EDT Tel , Service support ,
--- NOTE | 2020-08-27 13:44 | EDS_ITS ---
HPI History of Present Illness Chief Complaint: Lower Extremity Injury Informant: patient Occured/Mechanism Mechanism/Context: Yes unknown Onset/Context/Timing Onset: Days (3-4) Context: Gradual Onset Timing: Continuous Quality of Pain: - (sore) Location: left forefoot Current Severity: Mild Maximum Severity: Mild Worsened by: walking Relieved by: resting Associated Symptoms Associated Symptoms: Negative for Parasthesia, Weakness and Loss of Funtion Narrative Narrative: States he plays pickleball 3x per week, and wears regular gym shoes when playing. Does not recall any specific injury but is questioning whether this is related. He denies any systemic symptoms or fevers. Gradual onset of pain which has not been severe but he noticed bruising. Pain in the left foot, mostly at the first ray. No other complaints. [facility] Medical History (Updated 08/27/20 @ 14:[address] Elkin Razo MD) Atherosclerosis of coronary artery bypass graft of [place] heart with angina pectoris Atherosclerosis of coronary artery of [place] heart without angina pectoris Dizziness Hyperlipidemia Left ventricular diastolic dysfunction Paroxysmal atrial fibrillation Premature ventricular contractions Home Medications amlodipine 5 mg tablet 5 mg PO DAILY #90 tab 09/22/19 [Rx Last Taken 03/03/20 06:30] aspirin 81 mg tablet,delayed release 81 mg PO DAILY #90 tab 04/12/20 [Rx Last Taken Unknown] simvastatin 80 mg tablet 80 mg PO QHS #90 tab 06/13/20 [Rx Last Taken Unknown] clopidogrel 75 mg tablet 75 mg PO DAILY #90 tablet 07/10/20 [Rx Last Taken Un known] metoprolol tartrate 100 mg tablet 100 mg PO BID #180 tab 07/11/20 [Rx Last Taken Unknown] Allergy/AdvReac Type Severity Reaction Status Date / Time lisinopril AdvReac NEEDS Verified 08/27/20 13:23 FOLLOW-UP niacin AdvReac Other Verified 08/27/20 13:23 [From Niaspan Extended-Release] Family History Father , age 72 CAD (coronary artery disease) Diabetes Hypertension Myocardial infarction Mother Colon cancer Brother CAD (coronary artery disease) Diabetes CABG a 59 CABG age 58 Surgical History H/O coronary artery bypass surgery (12/02/02) History of coronary artery stent placement (05/26/07) History of maze procedure S/P CABG x 3 Social History Smoking Status: Never smoker ROS ROS ED Constitutional Constitutional ED: Denies chills or fever(s) Musculoskeletal Musculoskeletal: Reports extremity pain; Denies neck pain Integumentary Reports as per HPI and other Details: bruising L foot/toes ; Denies Abrasions, rash or wounds Neurologic Neurologic: Denies paresthesias or weakness EXAM Physical Exam Const Vital Signs: 08/27/20 13:20 Temperature 97.5 F L Temperature Source Temporal Pulse Rate 55 L Respiratory Rate 16 Blood Pressure 157/80 H Blood Pressure Mean 105 Pulse Ox 99 Oxygen Delivery Method Room Air Positive well nourished and well developed General Appearance ED: well developed and NAD Neck full ROM and supple Back/Spine normal ROM and normal to inspection Extremity Extremity Narrative: pedal edema BLE, trace RLE, 1+ LLE -- stable and chronic per pt Left Lower Extremity: foot and digits Positive for inspection (ecchymosis MTPJ 1-2 and into proximal toes 1-2), palpation (tender mildly 1st MTPJ only; otherwise, NT), ROM (normal and full throughout), neurovascular exam (nml) and tendon exam (nml) Neuro oriented x3, no focal motor deficits and no sensory deficits noted Sensorium / Orientation: alert Psych mental status grossly normal and thought process normal Skin no wounds Rashes: no rashes MDM MDM MDM Narrative Medical decision making narrative: My interpretation 3 view x-ray of the left foot show no acute bony abnormality. There are chronic spurring abnormalities. Patient was reassured, I suspect he had a minor injury with bruising more as a result of being on aspirin and clopidogrel. There is no sign of infection, I do not think he has a DVT, the asymmetric edema is explained by vein harvesting from his left lower extremity for his CABG remotely and he confirms that it is chronically asymmetrically swollen when compared with the right. Supportive care advised, using pain as his guide and I discussed reasons to return and follow-up. He is comfortable with that plan, and icing as needed. Radiography Diagnostic Testing: Radiology Impression Foot X-Ray 08/27/20 13:44 IMPRESSION: Normal x-ray examination of the foot. Electronically Signed: Ronen Khanna MD at 14:49 EDT Tel , Service support , Discharge Plan Triage Chief Complaint: Lower Extremity Injury ED Provider: Elkin Razo Dx/Rx/DC Orders Clinical Impression: Contusion of foot, left Instructions: ED Foot Contusion Prescriptions: No Action amlodipine 5 mg tablet 5 mg PO DAILY Qty: 90 RF: 3 aspirin 81 mg tablet,delayed release (DR/EC) 81 mg PO DAILY Qty: 90 RF: 3 simvastatin 80 mg tablet 80 mg PO QHS Qty: 90 RF: 3 clopidogrel 75 mg tablet 75 mg PO DAILY Qty: 90 RF: 3 metoprolol tartrate 100 mg tablet 100 mg PO BID Qty: 180 RF: 3 Primary Care Provider: Lyubov Diaz Referrals: Lyubov Diaz MD [Primary Care Provider] - 3-5 Days if not improving Disposition Disposition: Home, self care Discharge Date/Time: 08/27/20 14:54
== END 2020-08-27 14:54 | disposition home or self-care (01) ==
PROVIDERS: Emergency Provider Emergency Medicine; PCP Internal Medicine
DX: S90.32XA Contusion of left foot, initial encounter (principal); X58.XXXA Exposure to other specified factors, initial encounter; Y93.9 Activity, unspecified; Y92.9 Unspecified place or not applicable; E78.5 Hyperlipidemia, unspecified; I48.0 Paroxysmal atrial fibrillation; I49.3 Ventricular premature depolarization; I25.810 Atherosclerosis of coronary artery bypass graft(s) without angina pectoris; Z79.82 Long term (current) use of aspirin; Z79.02 Long term (current) use of antithrombotics/antiplatelets; Z79.899 Other long term (current) drug therapy
CPT/HCPCS: 73630; 99282

== ENCOUNTER → 2021-03-03 06:58 | Outpatient (CLI) | payer MEDICARE, SELFPAY ==
[2021-03-03 07:57] LABS: AST(SGOT) 14 U/L (15-37); Alanine Aminotransfer ALT/SGPT 10 U/L (16-61); Albumin, Serum 3.4 g/dL (3.2-5.0); Alkaline Phosphatase 90 U/L (45-117); Bilirubin, Direct 0.13 mg/dL (0.00-0.30); Cholesterol 98 mg/dL (200); Globulin 3.5 g/dL (2.2-4.2); High Density Lipoprotein 42 mg/dL; Protein, Total 6.9 g/dL (6.4-8.2); Triglycerides 50 mg/dL; Very Low Density Lipoprotein 10 mg/dL (5-40)
== END ==
LOC: LAB 06:59
PROVIDERS: PCP Internal Medicine; Referring Provider Nurse Practitioner Gerontology; Visit Provider Nurse Practitioner Gerontology
DX: E78.00 Pure hypercholesterolemia, unspecified (principal)
CPT/HCPCS: 36415; 80061; 80076

== ENCOUNTER → 2021-03-20 | Outpatient (CLI) | payer MEDICARE, SELFPAY ==
[2021-03-20 13:08] LABS: Thyroid Stim Hormone (TSH) 4.54 uIU/mL (0.358-3.74)
== END | disposition home or self-care (01) ==
LOC: LABSPEC 12:39
PROVIDERS: PCP Internal Medicine; Referring Provider Internal Medicine; Visit Provider Internal Medicine
DX: Z79.899 Other long term (current) drug therapy (principal)
CPT/HCPCS: 84443

== ENCOUNTER → 2022-06-18 | Outpatient (CLI) | payer MEDICARE, SELFPAY ==
[2022-06-18 17:29] LABS: AST(SGOT) 14 U/L (15-37); Alanine Aminotransfer ALT/SGPT 10 U/L (16-61); Albumin, Serum 3.8 g/dL (3.2-5.0); Alkaline Phosphatase 82 U/L (45-117); Bilirubin, Direct 0.13 mg/dL (0.00-0.30); Cholesterol 102 mg/dL (200); Globulin 3.2 g/dL (2.2-4.2); High Density Lipoprotein 37 mg/dL; Triglycerides 115 mg/dL; Very Low Density Lipoprotein 23 mg/dL (5-40)
== END | disposition home or self-care (01) ==
LOC: LAB 16:05
PROVIDERS: PCP Internal Medicine; Visit Provider Internal Medicine Cardiovascular Disease
DX: E78.00 Pure hypercholesterolemia, unspecified (principal)
CPT/HCPCS: 36415; 80061; 80076

== ENCOUNTER → 2023-07-31 | Outpatient (CLI) | payer MEDICARE, SELFPAY ==
[2023-07-31 08:56] LABS: AST(SGOT) 17 U/L (15-37); Alanine Aminotransfer ALT/SGPT 13 U/L (16-61); Albumin, Serum 3.7 g/dL (3.2-5.0); Alkaline Phosphatase 75 U/L (45-117); Bilirubin, Direct 0.14 mg/dL (0.00-0.30); Cholesterol 113 mg/dL (200); Globulin 3.1 g/dL (2.2-4.2); High Density Lipoprotein 39 mg/dL; Protein, Total 6.8 g/dL (6.4-8.2); Triglycerides 104 mg/dL; Very Low Density Lipoprotein 21 mg/dL (5-40)
--- NOTE | 2023-07-31 13:28 | STRESSREP_ITS ---
Stress Test Report Exercise myocardial perfusion stress test. 83-year-old man with a history of coronary artery disease Stress protocol: Resting EKG demonstrates normal sinus rhythm with a rate of 57 bpm resting blood pressure is 126 4/86 mmHg. The patient exercised according to the regular Johan protocol for a total duration of 9 minutes attaining a maximum heart rate of 84 bpm which was 60% of maximum predicted heart rate; the maximum workload was 10.3 metabolic equivalents. The patient was instructed to continue his beta-raul. At rest there were no ST or T wave changes noted to suggest ischemia and at peak exercise upsloping ST changes only were noted which did not meet the criteria for ischemia. No clinical angina was noted the test was terminated due to the target heart rate being achieved/fatigue. The peak blood pressure was 154/70 mmHg. Rate-pressure product was 12,600. Myocardial perfusion protocol. 11.7 mCi of technetium 99m sestamibi was injected at rest. The patient exercised according to regular Johan protocol for total duration of 9 minutes and at peak exercise 34.3 mCi of technetium 99m sestamibi was injected stress im ages were obtained stress and rest images were reconstructed in comparing the short axis vertical long and horizontal long axis. Gated images were also obtained. Perfusion SPECT analysis: Review of the stress images demonstrate normal uptake of tracer noted in all areas of the myocardium. The resting images similarly demonstrate normal uptake of tracer noted in all areas of the myocardium. No areas of reversibility are noted to suggest ischemia no previous infarct was noted. Gated SPECT analysis: The gated ejection fraction is 60%. Conclusion: Normal exercise myocardial perfusion stress test at a high workload Preserved ejection fraction.
== END | disposition home or self-care (01) ==
PROVIDERS: Internal Medicine Cardiovascular Disease; PCP Internal Medicine; Referring Provider Nurse Practitioner Gerontology; Visit Provider Nurse Practitioner Gerontology
DX: I25.10 Atherosclerotic heart disease of native coronary artery without angina pectoris (principal)
CPT/HCPCS: 36415; 78452; 80061; 80076; 93017; A9500

== ENCOUNTER → 2024-10-06 | Outpatient (CLI) | payer MEDICARE, SELFPAY ==
--- NOTE | 2024-10-06 13:09 | ECHOD_ITS ---
Reason For Study Reason For Study: CAD/ASHD Procedure This was a 2D Doppler, Color Flow transthoracic echocardiogram. Exam performed in department. Left Ventricle Normal LV size. Left ventricular systolic function is normal. The left ventricular ejection fraction is 65 %. Stage 3 diastolic dysfunction. No regional wall motion abnormalities noted. Right Ventricle Normal RV size. Normal systolic function. Atria Normal left atrium. Normal right atrium. Mitral Valve Normal mitral valve. Tricuspid Valve Normal tricuspid valve. Mild (1+) tricuspid valve insufficiency. Pulmonary artery systolic pressure is 38 mmHg. Aortic Valve Trisinus/trileaflet aortic valve. Mild (1+) aortic valve insufficiency. Pulmonic Valve Normal pulmonic valve. Great Vessels Normal aortic root. The pulmonary artery is normal size. Inferior vena cava collapse with respiration. Pericardium/Pleural No pericardial effusion. MMode/2D Measurements & Calculations LVIDd: 4.4 cm IVSd: 0.95 cm Ao root diam: 3.3 cm LVIDs: 2.9 cm LVPWd: 0.95 cm RVDd: 3.6 cm FS: 33.5 % LAV(MOD-bp): 42.9 ml LVAd ap4: 29.9 cm2 SV(MOD-sp4): 57.9 ml LAV(MOD-bp) Indexed: 23.0 ml/m2 LVLd ap4: 8.1 cm SI(MOD-sp4): 31.1 ml/m2 LAV(MOD-sp2): 40.5 ml EDV(MOD-sp4): 90.9 ml LAV(MOD-sp4): 42.6 ml EDV(sp4-el): 94.0 ml LVAs ap4: 15.8 cm2 LVLs ap4: 6.7 cm ESV(MOD-sp4): 32.9 ml ESV(sp4-el): 31.5 ml EF(MOD-sp4): 63.8 % EF(sp4-el): 66.4 % SV(sp4-el): 62.5 ml LA A4 area: 17.6 cm2 LA dimension(2D): 3.2 cm RA A4 area: 15.6 cm2 TAPSE: 1.7 cm Time Measurements MV dec time: 0.16 sec Doppler Measurements & Calculations MV E max chong: 120.6 cm/sec Lat Peak E' Chong: 12.4 cm/sec Med Peak E' Chong: 8.6 cm/sec MV A max chong: 44.1 cm/sec E/E' lat: 9.8 E/E' med: 14.1 MV E/A: 2.7 Ao V2 max: 120.9 cm/sec AI max chong: 304.9 cm/sec LV V1 max: 112.0 cm/sec Ao max P.8 mmHg AI max P.2 mmHg LV V1 max P.0 mmHg AI dec slope: 200.6 cm/sec2 AI P1/2t: 445.1 msec PA V2 max: 111.4 cm/sec TR max chong: 295.3 cm/sec TR max P.9 mmHg ECHO/Echo Complete Interpretation Summary Normal LV size. Left ventricular systolic function is normal. The left ventricular ejection fraction is 65 %. Stage 3 diastolic dysfunction. Pulmonary artery systolic pressure is 38 mmHg. Ordering Physician: Tod Fsos Referring Physician: MARGY PULIDO Performed By: Krysta Wilkes RDCS
== END | disposition home or self-care (01) ==
PROVIDERS: PCP Internal Medicine; Referring Provider Internal Medicine Cardiovascular Disease; Visit Provider Internal Medicine Cardiovascular Disease
DX: I51.9 Heart disease, unspecified (principal)
CPT/HCPCS: 93306